=== PATIENT | female | born 1995 | race Caucasian/White ===

== ENCOUNTER 2018-02-14 12:05 | Emergency (ER) | payer OTHER ==
--- NOTE | 2018-02-14 12:28 | ER Document Report ---
ED Medical Screen (RME) - General Chief Complaint: Rectal Pain Stated Complaint: RECTAL ISSUES Time Seen by Provider: 02/14/18 12:23 - HPI Notes: 02/14/18 12:27 Patient is a 22-year-old female that presents to the emergency department for chief complaint of rectal prolapse. Patient has had rectal prolapse for the last year. She was seen by a surgeon and has an appointment on 03/01/[address] Landon Mora in [place] for repair. She states about an hour ago the prolapse came out and she is unable to reduce it ROS: GENERAL: Denies fever of chills CV: Denies chest pain PHYSICAL EXAMINATION: GENERAL: Well-appearing, well-nourished and in no acute distress. HEAD: Atraumatic, normocephalic. EYES: Pupils equal round extraocular movements intact, conjunctiva are normal. ENT: Nares patent NECK: Normal range of motion LUNGS: No respiratory distress Musculoskeletal: Normal range of motion NEUROLOGICAL: Normal speech, normal gait. PSYCH: Normal mood, normal affect. MDM: Patient seen and examined for rapid initial assessment. Vital signs reviewed. A comprehensive ED assessment and evaluation of the patient, analysis of test results and completion of the medical decision making process will be conducted by additional ED providers. - Related Data Allergies/Adverse Reactions: No Known Allergies Allergy (Verified 02/14/18 12:26) Past Medical History - Social History Chew tobacco use (# tins/day): No Frequency of alcohol use: Social Drug Abuse: None Pulmonary Medical History: Reports: Hx Asthma Renal/ Medical History: Denies: Hx Peritoneal Dialysis Past Surgical History: Reports: Hx Abdominal Surgery - gastric sleeve, Hx Cholecystectomy - Immunizations Hx Diphtheria, Pertussis, Tetanus Vaccination: No Physical Exam - Vital signs Vitals: Temp Pulse Resp BP Pulse Ox 98.3 F 103 H 16 118/84 98 02/14/18 12:16 02/14/18 12:16 02/14/18 12:16 02/14/18 12:16 02/14/18 12:16 Course - Vital Signs Vital signs: Temp Pulse Resp BP Pulse Ox 98.3 F 103 H 16 118/84 98 02/14/18 12:16 02/14/18 12:16 02/14/18 12:16 02/14/18 12:16 02/14/18 12:16
--- NOTE | 2018-02-14 12:59 | ER Document Report ---
ED General - General Chief Complaint: Rectal Pain Stated Complaint: RECTAL ISSUES Time Seen by Provider: 02/14/18 12:23 Notes: Patient is a 22-year-old female that presents to the emergency department for chief complaint of rectal prolapse. Patient has a chronic history of rectal prolapse for almost a year now, she is scheduled to have surgery at the beginning of next year, today she states she had a bowel movement, and usually she is able to manually reduce her prolapse, but after multiple attempts, over a few hours she was not able to, and was having pain so she decided come to the ED. She currently rates her pain as a 7 out of 10, worse with trying to sit down or walking. Describes as a constant and aching sensation near the rectum. She denies having any nausea, vomiting, fevers, chills, abdominal pain or other symptoms at this time. Past Medical History: Rectal prolapse Past Surgical History: Denies pertinent surgical history Social History: Denies current tobacco, alcohol or drug use. Family History: Reviewed and noncontributory for presenting illness Allergies: Reviewed, see documented allergy list. REVIEW OF SYSTEMS: Other than noted above, the 12 point review of systems was reviewed with the patient and were negative, all pertinent findings are included in the HPI. PHYSICAL EXAMINATION: Vital signs reviewed, nursing noted reviewed. GENERAL: Well-appearing, well-nourished and in no acute distress. HEAD: Atraumatic, normocephalic. EYES: Eyes appear normal, extraocular movements intact, sclera anicteric, conjunctiva are normal. ENT: nares patent, oropharynx clear without exudates. Moist mucous membranes. NECK: Normal range of motion, supple without lymphadenopathy LUNGS: Breath sounds clear to auscultation bilaterally and equal. No wheezes rales or rhonchi. HEART: Regular rate and rhythm without murmurs ABDOMEN: Soft, nontender, normoactive bowel sounds. No rebound, guarding, or rigidity. No masses appreciated. External anal exam: With paint stockman present, the patient was in the right lateral decubitus position, and rectum appeared to be prolapsed, tissue appeared healthy, was red and pink, no evidence of necrosis EXTREMITIES: Nontender, good range of motion, no pitting or edema. NEUROLOGICAL: No focal neurological deficits. Moves all extremities spontaneously Motor and sensory grossly intact on exam. PSYCH: Normal mood, normal affect. SKIN: Warm, Dry, normal turgor, no rashes or lesions noted on exposed skin - Related Data Allergies/Adverse Reactions: No Known Allergies Allergy (Verified 02/14/18 12:26) Past Medical History - Social History Smoking Status: Current Every Day Smoker Chew tobacco use (# tins/day): No Frequency of alcohol use: Social Drug Abuse: None Family History: Reviewed & Not Pertinent Patient has suicidal ideation: No Patient has homicidal ideation: No Pulmonary Medical History: Reports: Hx Asthma Renal/ Medical History: Denies: Hx Peritoneal Dialysis Past Surgical History: Reports: Hx Abdominal Surgery - gastric sleeve, Hx Cholecystectomy - Immunizations Hx Diphtheria, Pertussis, Tetanus Vaccination: No Physical Exam - Vital signs Vitals: Temp Pulse Resp BP Pulse Ox 98.3 F 103 H 16 118/84 98 02/14/18 12:16 02/14/18 12:16 02/14/18 12:16 02/14/18 12:16 02/14/18 12:16 Course - Re-evaluation Re-evalutation: Patient was seen and examined, paint stockman in the room, rectal exam demonstrated a prolapsed rectum, initially plan to use sugar to help reduce it, after patient was placed in the right lateral decubitus position, and elevated on the bed, the motion of elevate in the cot, actually resulted in spontaneous reduction of the patient's prolapsed rectum. Patient appeared well and was comfortable after this occurred, and will discharge her to follow-up with her surgeon, she is advised if she is not able to reduce this again, to do not hesitate to return to the emergency department. - Vital Signs Vital signs: Temp Pulse Resp BP Pulse Ox 98.5 F 103 H 14 116/83 97 02/14/18 13:01 02/14/18 12:16 02/14/18 13:01 02/14/18 13:01 02/14/18 13:01 Discharge - Discharge Clinical Impression: Rectal prolapse Condition: Stable Disposition: HOME, SELF-CARE Additional Instructions: Please follow-up with your surgeon, if you have prolapse again, after attempts at home, turning on her side, and on to your abdomen, may help, if this does not reduce it, do not hesitate to return to the emergency department. Referrals: FIONA GUZMAN MD [ACTIVE STAFF] - Follow up as needed (or your primary care. )
[2018-02-14 13:04] VITALS: BP 116/83
== END 2018-02-14 13:10 | disposition home or self-care (01) ==
LOC: ER 12:05
DX: K62.3 Rectal prolapse (principal); J45.909 Unspecified asthma, uncomplicated; Z98.84 Bariatric surgery status
CPT/HCPCS: 99283

== ENCOUNTER 2018-03-12 03:00 | Emergency (ER) | payer OTHER ==
[2018-03-12 03:07] VITALS: BP 133/93
[2018-03-12 03:28] LABS: APPEARANCE,URINE CLOUDY; BILIRUBIN,URINE NEGATIVE (NEGATIVE); COLOR,URINE RED; GLUCOSE, URINE NEGATIVE (NEGATIVE); KETONES,URINE NEGATIVE (NEGATIVE); LEUKOCYTE ESTERASE,URINE NEGATIVE (NEGATIVE); NITRITE,URINE NEGATIVE (NEGATIVE); PROTEIN,URINE 100 mg/dL (NEGATIVE); URINE SPECIFIC GRAVITY 1.019; UROBILINOGEN,URINE NEGATIVE mg/dL (<2.0)
[2018-03-12] MEDS ORDERED: MORPHINE SULFATE 10 MG/ML INJ IV ONE (03:35)
[2018-03-12] MEDS ORDERED: NORMAL SALINE 1000 ML 1,000 ML IV ONE (03:35)
[2018-03-12] MEDS ORDERED: ONDANSETRON HCL INJ/PF 4 MG/2 ML SDV IV ONE (03:35)
--- NOTE | 2018-03-12 03:38 | ER Document Report ---
ED GI/ - General Chief Complaint: Urinary Problem Stated Complaint: URINARY ISSUES Time Seen by Provider: 03/12/18 03:28 Notes: Patient is a 22-year-old female that comes to the emergency department for chief complaint of worsening right flank pain radiating around to the right abdomen for the past several days, over the past 24 hours it has become significantly worse, she is started becoming nauseated and she vomited earlier. She does re port possible blood in the urine and also reports dysuria and frequency. She denies fever or chills. She denies history of kidney stones or kidney infections. Past medical history of gastric sleeve, cholecystectomy, she had rectal prolapse repair on 03/01/[address] Mora in [place]. TRAVEL OUTSIDE OF THE [place] IN LAST 30 DAYS: No - Related Data Allergies/Adverse Reactions: No Known Allergies Allergy (Verified 02/14/18 12:26) Past Medical History - General Information source: Patient - Social History Smoking Status: Current Every Day Smoker Chew tobacco use (# tins/day): No Smoking Education Provided: Yes - <3 min Frequency of alcohol use: Occasional Drug Abuse: None Lives with: Family Family History: Reviewed & Not Pertinent Patient has suicidal ideation: No Patient has homicidal ideation: No Pulmonary Medical History: Reports: Hx Asthma Renal/ Medical History: Denies: Hx Peritoneal Dialysis Past Surgical History: Reports: Hx Abdominal Surgery - gastric sleeve; rectal prolapse repair, Hx Cholecystectomy - Immunizations Hx Diphtheria, Pertussis, Tetanus Vaccination: Yes Review of Systems - Review of Systems Constitutional: No symptoms reported EENT: No symptoms reported Cardiovascular: No symptoms reported Respiratory: No symptoms reported Gastrointestinal: See HPI Genitourinary: See HPI Female Genitourinary: No symptoms reported Musculoskeletal: No symptoms reported Skin: No symptoms reported Hematologic/Lymphatic: No symptoms reported Neurological/Psychological: No symptoms reported Physical Exam - Vital signs Vitals: Temp Pulse Resp BP Pulse Ox 97.4 F 75 20 133/93 H 100 03/12/18 03:03 03/12/18 03:03 03/12/18 03:03 03/12/18 03:03 03/12/18 03:03 - Notes Notes: GENERAL: Tearful, appears uncomfortable, shifting frequently. HEAD: Normocephalic, atraumatic. EYES: Pupils equal, round, and reactive to light. Extraocular movements intact. ENT: Oral mucosa moist, tongue midline. Oropharynx unremarkable. Airway patent. Nares patent, no nasal septal hematoma, TM's intact. NECK: Full range of motion. Supple. Trachea midline. LUNGS: Clear to auscultation bilaterally, no wheezes, rales, or rhonchi. No respiratory distress. HEART: Regular rate and rhythm. No murmur ABDOMEN: Mild generalized right sided abdominal tenderness, no guarding. Recent umbilical wounds which appear to be healed without erythema, drainage, signs of infection. Unremarkable otherwise. GENITOURINARY: Deferred EXTREMITIES: Moves all 4 extremities spontaneously. No edema, normal radial and dorsalis pedis pulses bilaterally. No cyanosis. BACK: no cervical, thoracic, lumbar midline tenderness. No saddle anesthesia, normal distal neurovascular exam. Right CVA tenderness, left unremarkable. NEUROLOGICAL: Alert and oriented x3. Normal speech. [cranial nerves II through XII grossly intact]. SKIN: Warm, dry, normal turgor. No rashes or lesions noted. Course - Re-evaluation Re-evalutation: Vital signs unremarkable. No fever, tachycardia, or hypotension. After treatment with morphine, IV fluids, patient is much more comfortable. Symptoms almost completely resolved. CBC unremarkable, chemistry unremarkable, other than minimal LFT elevation. No tenderness in the right upper quadrant, epigastric area, or upper abdomen generally. Patient does have right sided CVA tenderness extending to the mid to lower right abdomen. Urinary tract infection noted along with a lot of blood on the. test negative. CAT scan performed, shows hydronephrosis on the right side, no nephrolithiasis or ureterolithiasis noted. No acute findings otherwise. Clinical picture is most suggestive of patient having developed a ureterolithiasis, secondary infection, and then having passed the stone. She will be provided with antibiotics, symptom management. I discussed results with patient in detail, discussed dietary precautions, kidney stones, follow-up, and return precautions. Patient states understanding and agreement. Stable at time of discharge. - Vital Signs Vital signs: Temp Pulse Resp BP Pulse Ox 97.4 F 75 20 133/93 H 100 03/12/18 03:03 03/12/18 03:03 03/12/18 03:03 03/12/18 03:03 03/12/18 03:03 - Laboratory Result Diagrams: 03/12/18 03:50 03/12/18 03:50 Laboratory results interpreted by me: 03/12/18 03/12/18 03/12/18 03:08 03:50 03:50 WBC 11.4 H AST 54 H ALT 60 H Urine Protein 100 H Urine Blood LARGE H Discharge - Discharge Clinical Impression: Flank pain Urinary tract infection Qualifiers: Urinary tract infection type: site unspecified Hematuria presence: with hematuria Qualified Code(s): N39.0 - Urinary tract infection, site not specified Vomiting Qualifiers: Vomiting type: unspecified Vomiting Intractability: non-intractable Nausea presence: with nausea Qualified Code(s): R11.2 - Nausea with vomiting, unspecified Condition: Stable Disposition: HOME, SELF-CARE Additional Instructions: Your workup and evaluation indicates that you recently passed a kidney stone, before this past this was developing an infection. You have been started on antibiotics, he was given a dose of Rocephin here in the emergency department, complete treatment for urinary tract infection with the cephalexin as prescribed. Take prescribed medication for pain and nausea if needed. Follow- up with primary care. Avoid food products containing oxalate such as dark sodas, sweet tea, etc. as discussed. Return if you worsen including fever, shaking chills, uncontrolled vomiting, worsening pain, or any other concerning or worsening symptoms. Prescriptions: Cephalexin Monohydrate [Keflex 500 mg Capsule] 500 mg PO BID #14 capsule Morphine Sulfate [Morphine Ir 15 Mg Tablet] 15 mg PO TID PRN #12 tablet PRN Reason: Ondansetron [Zofran Odt 4 mg Tablet] 1 - 2 tab PO Q4H PRN #15 tab.rapdis PRN Reason: For Nausea/Vomiting
[2018-03-12 04:10] LABS: ABSOLUTE BASOPHILS # (AUTO) 0.1 10^3/uL (0.0-0.2); ABSOLUTE EOSINOPHILS # (AUTO) 0.5 10^3/uL (0.0-0.6); ABSOLUTE LYMPHOCYTES (AUTO) 2.8 10^3/uL (0.5-4.7); ABSOLUTE MONOCYTES (AUTO) 0.7 10^3/uL (0.1-1.4); ABSOLUTE NEUT (AUTO) 7.3 10^3/uL (1.7-8.2); EOSINOPHILS % (AUTO) 4.5 % (0-6); HEMATOCRIT 43.7 % (36.0-47.0); HEMOGLOBIN 14.8 g/dL (12.0-15.5); LYMPHOCYTES % (AUTO) 24.3 % (13-45); MEAN CORPUSCULAR HEMOGLOBIN 30.8 pg (27.0-33.4); MEAN CORPUSCULAR HGB CONC 33.9 g/dL (32.0-36.0); MEAN CORPUSCULAR VOLUME 91 fl (80-97); MONOCYTES % (AUTO) 5.7 % (3-13); PLATELET COUNT 420 10^3/uL (150-450); RED BLOOD COUNT 4.81 10^6/uL (3.72-5.28); RED CELL DISTRIBUTION WIDTH 12.8 % (11.5-14.0); SEGMENTED NEUTROPHILS % (AUTO) 64.5 % (42-78); TOTAL CELLS COUNTED % (AUTO) 100 %; WHITE BLOOD COUNT 11.4 10^3/uL (4.0-10.5)
[2018-03-12] MEDS ORDERED: CEFTRIAXONE 1 GM/D5W RTU 1 GM/50 ML RTUPB IV ONE (04:23)
[2018-03-12 04:44] LABS: ALANINE AMINOTRANSFERASE 60 U/L (9-52); ALBUMIN 4.7 g/dL (3.5-5.0); ALKALINE PHOSPHATASE 102 U/L (38-126); ANION GAP 9 (5-19); ASPARTATE AMINO TRANSFERASE 54 U/L (14-36); BILIRUBIN,DIRECT 0.3 mg/dL (0.0-0.4); BILIRUBIN,TOTAL 0.6 mg/dL (0.2-1.3); BLOOD UREA NITROGEN 13 mg/dL (7-20); CALCIUM 9.9 mg/dL (8.4-10.2); CARBON DIOXIDE 29 mmol/L (22-30); CHLORIDE 104 mmol/L (98-107); GLUCOSE 96 mg/dL (75-110); POTASSIUM 4.5 mmol/L (3.6-5.0); SODIUM 142.3 mmol/L (137-145); TOTAL PROTEIN 7.2 g/dL (6.3-8.2)
--- NOTE | 2018-03-12 04:44 | RADIOLOGY REPORT (SQ) ---
CLINICAL DATA: 22-year-old female with right flank pain, nausea and vomiting TECHNICAL DATA: Axial CT imaging of the abdomen and pelvis was performed. Sagittal and coronal reconstructed images were then performed. The CT study is performed according to ALARA (as low as reasonably achievable) or ALARA/IMAGE GENTLY, with automatic adjustment of mA and/or kV according to patient size. Performed on: 03/12/2018 at 4:06 AM Comparison: None. FINDINGS: Lung bases: The lung bases are clear. Liver:The liver is normal in size and configuration. No focal hepatic abnormalities are appreciated on this unenhanced scan. Liver attenuation is within normal limits. Spleen:The spleen is normal is size, configuration and attenuation. No focal splenic abnormalities are appreciated on this unenhanced scan. Gallbladder and bile duct: The gallbladder is surgically absent. There is no biliary ductal dilatation. Pancreas: The pancreas is grossly normal in size and configuration. Adrenal Glands:The adrenal glands are normal in size and configuration. Kidneys:The kidneys are normal in size and configuration. There is mild dilatation of the right renal collecting system. No definite ureteral calcifications are identified. There is no evidence of nephrolithiasis. No focal renal abnormalities are identified. Stomach: There are postsurgical changes along the greater curvature of the stomach. There is no definite hiatal hernia. Bowel:The bowel gas pattern is non specific and non obstructive. A surgical suture line is noted in the region of the sigmoid colon. Appendix: The appendix is normal. Free air:There is no evidence of free air. Free fluid: There is no evidence of free fluid. Vasculature: The aorta is normal in caliber and contour. The inferior vena cava is grossly unremarkable. Lymphadenopathy: No pathologic lymphadenopathy is identified. Bladder: The bladder is incompletely distended and smooth in contour. Reproductive: The uterus is grossly within normal limits. Bones: No acute osseous abnormalities are identified. Soft tissues: No focal soft tissue abnormalities are identified. IMPRESSION: 1. There is mild right-sided hydronephrosis without evidence of a definite obstructing ureteral calculus. Findings could reflect a recently passed stone or possibly ureteral stenosis. 2. Remote cholecystectomy. 3. Postsurgical changes along the greater curvature of the stomach and surgical suture line in the region of the sigmoid colon.
== END 2018-03-12 05:15 | disposition home or self-care (01) ==
LOC: ER 03:00
DX: N39.0 Urinary tract infection, site not specified (principal); R31.9 Hematuria, unspecified; R11.2 Nausea with vomiting, unspecified; N13.30 Unspecified hydronephrosis; R79.89 Other specified abnormal findings of blood chemistry; F17.200 Nicotine dependence, unspecified, uncomplicated; J45.909 Unspecified asthma, uncomplicated; Z98.84 Bariatric surgery status; Z90.49 Acquired absence of other specified parts of digestive tract; Z98.890 Other specified postprocedural states
CPT/HCPCS: 99284; 96361; 96375; 96365; 36415; 87086; 85025; 81025; 80053; 81001; 76380; J2270; J2405; J7030; J0696

== ENCOUNTER 2019-05-14 14:44 | Emergency (ER) | payer SELFPAY ==
[2019-05-14 15:14] VITALS: BP 116/72
[2019-05-14 16:11] LABS: A TYPE INFLUENZA AG NEGATIVE (NEGATIVE); B INFLUENZA AG NEGATIVE (NEGATIVE)
--- NOTE | 2019-05-14 17:12 | ER Document Report ---
HPI - HPI Time Seen by Provider: 05/14/19 15:14 Pain Level: 2 Notes: Patient is an otherwise healthy 23-year-old female presenting to the emergency department 3-day history of sore throat, runny nose, cough, body aches, diarrhea, nausea. Patient denies any abdominal pain. Denies fever. - EENT EENT: REPORTS: Sore Throat - REPRODUCTIVE Reproductive: DENIES: : Past Medical History - General Information source: Patient - Social History Smoking Status: Current Every Day Smoker Family History: Reviewed & Not Pertinent Patient has suicidal ideation: No Patient has homicidal ideation: No Pulmonary Medical History: Reports: Hx Asthma Renal/ Medical History: Denies: Hx Peritoneal Dialysis Past Surgical History: Reports: Hx Abdominal Surgery - gastric sleeve; rectal prolapse repair, Hx Cholecystectomy - Immunizations Hx Diphtheria, Pertussis, Tetanus Vaccination: Yes Vertical Provider Document - CONSTITUTIONAL Notes: PHYSICAL EXAMINATION: GENERAL: Well-appearing, well-nourished and in no acute distress. HEAD: Atraumatic, normocephalic. EYES: Pupils equal round and reactive to light, extraocular movements intact, conjunctiva are normal. ENT: Nares patent, oropharynx clear without exudates. Moist mucous membranes. NECK: Normal range of motion, supple without lymphadenopathy LUNGS: Breath sounds clear to auscultation bilaterally and equal. No wheezes rales or rhonchi. HEART: Regular rate and rhythm without murmurs ABDOMEN: Soft, nontender, nondistended abdomen. No guarding, no rebound. No masses appreciated. Female : deferred Musculoskeletal: Normal range of motion, no pitting or edema. No cyanosis. NEUROLOGICAL: Cranial nerves grossly intact. Normal speech, normal gait. Normal sensory, motor exams PSYCH: Normal mood, normal affect. SKIN: Warm, Dry, normal turgor, no rashes or lesions noted. - INFECTION CONTROL TRAVEL OUTSIDE OF THE [place] IN LAST 30 DAYS: No Course - Re-evaluation Re-evalutation: Laboratory 05/14/19 15:30 Influenza A (Rapid) NEGATIVE Influenza B (Rapid) NEGATIVE Influenza negative. Patient appears well, nontoxic, no indication for further work-up at this time. Vital signs stable. Patient verbalized understanding and agreement with discharge instructions. - Vital Signs Vital signs: Temp Pulse Resp BP Pulse Ox 98.3 F 80 16 116/72 100 05/14/19 15:13 03/17/20 15:13 05/14/19 15:13 05/14/19 15:13 05/14/19 15:13 Discharge - Discharge Clinical Impression: Flu-like symptoms Condition: Stable Disposition: HOME, SELF-CARE Additional Instructions: Your symptoms are most consistent with a virus. Please push fluids. Take Tylenol or ibuprofen for any fever, pain or body aches. Forms: Return to Work
== END 2019-05-14 17:23 | disposition home or self-care (01) ==
LOC: ER 14:44
DX: J02.9 Acute pharyngitis, unspecified (principal); M79.10 Myalgia, unspecified site; R19.7 Diarrhea, unspecified; R11.0 Nausea; F17.200 Nicotine dependence, unspecified, uncomplicated; Z90.49 Acquired absence of other specified parts of digestive tract
CPT/HCPCS: 87804; 99283

== ENCOUNTER 2019-07-02 09:12 | Emergency (ER) | payer BC ==
--- NOTE | 2019-07-02 10:12 | ER Document Report ---
ED Medical Screen (RME) - General Stated Complaint: ABDOMINAL CRAMPING Time Seen by Provider: 07/02/19 10:07 TRAVEL OUTSIDE OF THE [place] IN LAST 30 DAYS: No - HPI Notes: 07/02/19 10:10 23-year-old female 6 para 1 who is 5 weeks and 3 days with a history of nephrolithiasis presents to the emergency room for mild cramping and painful lower back that started yesterday afternoon. Patient states pain has been constant in her lower back but her lower abdominal cramping has been intermittent, denies any vaginal bleeding or vaginal discharge, no fevers or chills. Denies any nausea vomiting or diarrhea, no chest pain or shortness of breath. She did contact her STRAW HAT PRESSER, fouzia, are unable to see her today advised her to come to the emergency room. I have greeted and performed a rapid initial assessment of this patient. A comprehensive ED assessment and evaluation of the patient, analysis of test results and completion of the medical decision making process will be conducted by additional ED providers. PHYSICAL EXAMINATION: GENERAL: Well-appearing, well-nourished and in no acute distress. CV: s1, s2 regular LUNGS: No respiratory distress Musculoskeletal: Normal range of motion ABD: Lower abdominal tenderness on palpation, no CVA tenderness appreciated bilaterally NEUROLOGICAL: Normal speech, normal gait. SKIN: Warm, Dry, normal turgor, no rashes or lesions noted. - Related Data Allergies/Adverse Reactions: No Known Allergies Allergy (Verified 02/14/18 12:26) Past Medical History Pulmonary Medical History: Reports: Hx Asthma Renal/ Medical History: Denies: Hx Peritoneal Dialysis Past Surgical History: Reports: Hx Abdominal Surgery - gastric sleeve; rectal prolapse repair, Hx Cholecystectomy - Immunizations Hx Diphtheria, Pertussis, Tetanus Vaccination: Yes Physical Exam - Vital signs Vitals: Temp Pulse Resp BP Pulse Ox 97.8 F 70 16 116/75 100 07/02/19 09:15 07/02/19 09:15 07/02/19 09:15 07/02/19 09:15 07/02/19 09:15 Course - Vital Signs Vital signs: Temp Pulse Resp BP Pulse Ox 97.8 F 70 16 116/75 100 07/02/19 09:15 07/02/19 09:15 07/02/19 09:15 07/02/19 09:15 07/02/19 09:15
[2019-07-02 10:35] LABS: ABSOLUTE BASOPHILS # (AUTO) 0.1 10^3/uL (0.0-0.2); ABSOLUTE EOSINOPHILS # (AUTO) 0.3 10^3/uL (0.0-0.6); ABSOLUTE MONOCYTES (AUTO) 0.4 10^3/uL (0.1-1.4); MEAN CORPUSCULAR HGB CONC 35.3 g/dL (32.0-36.0); TOTAL CELLS COUNTED % (AUTO) 100 %
[2019-07-02 10:40] LABS: ABSOLUTE LYMPHOCYTES (AUTO) 2.1 10^3/uL (0.5-4.7); ABSOLUTE NEUT (AUTO) 4.7 10^3/uL (1.7-8.2); EOSINOPHILS % (AUTO) 3.4 % (0-6); HEMOGLOBIN 13.8 g/dL (12.0-15.5); LYMPHOCYTES % (AUTO) 28.3 % (13-45); MEAN CORPUSCULAR HEMOGLOBIN 31.7 pg (27.0-33.4); MEAN CORPUSCULAR VOLUME 90 fl (80-97); MONOCYTES % (AUTO) 5.2 % (3-13); PLATELET COUNT 324 10^3/uL (150-450); RED BLOOD COUNT 4.35 10^6/uL (3.72-5.28); SEGMENTED NEUTROPHILS % (AUTO) 62.1 % (42-78); WHITE BLOOD COUNT 7.6 10^3/uL (4.0-10.5)
[2019-07-02 10:44] LABS: APPEARANCE,URINE SLIGHTLY-CLOUDY; BILIRUBIN,URINE NEGATIVE (NEGATIVE); COLOR,URINE STRAW; GLUCOSE, URINE NEGATIVE (NEGATIVE); KETONES,URINE NEGATIVE (NEGATIVE); LEUKOCYTE ESTERASE,URINE TRACE (NEGATIVE); NITRITE,URINE NEGATIVE (NEGATIVE); PROTEIN,URINE NEGATIVE (NEGATIVE); URINE SPECIFIC GRAVITY 1.005; UROBILINOGEN,URINE NEGATIVE mg/dL (<2.0)
[2019-07-02 11:06] LABS: ALKALINE PHOSPHATASE 56 U/L (38-126); ASPARTATE AMINO TRANSFERASE 17 U/L (14-36); BILIRUBIN,TOTAL 0.5 mg/dL (0.2-1.3); BLOOD UREA NITROGEN 7 mg/dL (7-20); CALCIUM 9.2 mg/dL (8.4-10.2); CARBON DIOXIDE 28 mmol/L (22-30); CHLORIDE 104 mmol/L (98-107); GLUCOSE 88 mg/dL (75-110); POTASSIUM 4.3 mmol/L (3.6-5.0); TOTAL PROTEIN 6.5 g/dL (6.3-8.2)
[2019-07-02 11:12] LABS: ANION GAP 5 (5-19)
--- NOTE | 2019-07-02 11:50 | ER Document Report ---
Entered by DORENE MATTHEWS SCRIBE 07/02/19 1141 Acting as scribe for:BRADY SCHNEIDER MD ED GI/ - General Chief Complaint: Abdominal Pain Stated Complaint: ABDOMINAL CRAMPING Time Seen by Provider: 07/02/19 10:07 Mode of Arrival: Ambulatory Information source: Patient Notes: This 23 year old female patient, A4, currently approximately x5 weeks presents to the ED today with complaints of abdominal cramping and left lower back pain that started yesterday afternoon. Patient reports a history of kidney stones and UTIs and is concerned that she may have another kidney stone or miscarriage. She states that she tried to go see her mid- today, but was unable to so she decided to come to the ED. She notes that she has not had a ultrasound done yet, but has a consultation set up in x3 days. LMP was 05/26/2019. Denies vaginal bleeding, vaginal discharge, fever, chills, nausea/vomiting/diarrhea outside of morning sickness, chest pain, or shortness of breath. TRAVEL OUTSIDE OF THE [place] IN LAST 30 DAYS: No - Related Data Allergies/Adverse Reactions: No Known Allergies Allergy (Verified 02/14/18 12:26) Home Medications: Prenatals Past Medical History - General Information source: Patient - Social History Smoking Status: Smoker,Current Status Unk Cigarette use (# per day): Yes Chew tobacco use (# tins/day): No Smoking Education Provided: No Frequency of alcohol use: Rare Drug Abuse: None Lives with: Family Family History: Reviewed & Not Pertinent, DM Patient has suicidal ideation: No Patient has homicidal ideation: No Pulmonary Medical History: Reports: Hx Asthma Skin Medical History: Reports Other - Hx Vertigo Past Surgical History: Reports: Hx Cholecystectomy, Hx Gastric Bypass Surgery - gastric sleeve, Hx Rectal Surgery - rectal prolapse repair - Immunizations Hx Diphtheria, Pertussis, Tetanus Vaccination: Yes Review of Systems - Review of Systems Constitutional: See HPI. denies: Chills, Fever EENT: No symptoms reported Cardiovascular: See HPI. denies: Chest pain Respiratory: See HPI. denies: Short of breath Gastrointestinal: See HPI, Other - Abdominal cramping. denies: Diarrhea, Nausea, Vomiting Genitourinary: No symptoms reported Female Genitourinary: See HPI, Last menstrual period - 05/26/2019, - x5 weeks. denies: Vaginal discharge, Vaginal bleeding Musculoskeletal: See HPI, Back pain Skin: No symptoms reported Hematologic/Lymphatic: No symptoms reported Neurological/Psychological: No symptoms reported -: Yes All other systems reviewed and negative Physical Exam - Vital signs Vitals: Temp Pulse Resp BP Pulse Ox 97.8 F 70 16 116/75 100 07/02/19 09:15 07/02/19 09:15 07/02/19 09:15 07/02/19 09:15 07/02/19 09:15 Interpretation: Normal - General General appearance: Appears well, Alert In distress: None - HEENT Head: Normocephalic, Atraumatic Eyes: Normal Pupils: PERRL - Respiratory Respiratory status: No respiratory distress Chest status: Nontender Breath sounds: Normal Chest palpation: Normal - Cardiovascular Rhythm: Regular Heart sounds: Normal auscultation, S1 appreciated, S2 appreciated Murmur: No Friction rub: No Gallop: None auscultated - Abdominal Inspection: Normal Distension: No distension Bowel sounds: Normal Tenderness: Nontender - Abdomen soft Organomegaly: No organomegaly - Back Back: Normal, Nontender - Extremities General upper extremity: Normal inspection General lower extremity: Normal inspection - Neurological Neuro grossly intact: Yes Orientation: AAOx4 - Psychological Associated symptoms: Normal affect, Normal mood - Skin Skin Temperature: Warm Skin Moisture: Dry Skin Color: Normal Course - Re-evaluation Re-evalutation: 07/02/19 11:45 Patient resting comfortably pending lab results and ultrasound results at this time. - Vital Signs Vital signs: Temp Pulse Resp BP Pulse Ox 97.8 F 70 16 116/75 100 07/02/19 10:04 07/02/19 09:15 07/02/19 09:15 07/02/19 09:15 07/02/19 09:15 07/02/19 11:45 Vital signs stable - Laboratory Result Diagrams: 07/02/19 10:22 07/02/19 10:22 Laboratory results interpreted by me: 07/02/19 07/02/19 10:22 10:22 Sodium 136.8 L Beta HCG, Quant 26.46 H Ur Leukocyte Esterase TRACE H 07/02/19 11:46 Significant lab results shows a quantitative beta hCG equals 26.46. I discussed the significance of such a low number on the quantitative beta-hCG with patient. Patient is saddened over such a low number as she considers herself to be greater than 3 to 5 weeks in that range at this time. And this is based on her last menstrual period of May 25. I explained to patient that the quantitative number doubles every 2 days and explained to her that she needs to follow-up with her OB level vial grinder/medical i d sales for further testing in 2 days. - Diagnostic Test Radiology reviewed: Image reviewed, Reports reviewed Radiology results interpreted by me: 07/02/19 11:47 Preliminary renal ultrasound disclosed no evidence for hydronephrosis or significant change between 1 kidney size to the next. There is a 1 cm dilation of the right ureter over the left. Otherwise no acute process seen. Again discussed this finding with patient and explained to her that we did not see any signs of kidney stone on renal ultrasound. Discharge - Discharge Clinical Impression: Threatened miscarriage in early Condition: Stable Disposition: HOME, SELF-CARE Instructions: Threatened Miscarriage (OM) Additional Instructions: I explained the patient that she needs to follow-up with her medical i d sales within the next 2 days for repeat testing. Today's test results shows a quantitative beta- hCG of 26.46 I personally performed the services described in the documentation, reviewed and edited the documentation which was dictated to the scribe in my presence, and it accurately records my words and actions.
--- NOTE | 2019-07-02 12:06 | RADIOLOGY REPORT (SQ) ---
EXAM DESCRIPTION: U/S RETROPERITON (RENAL/AORTA) IMAGES COMPLETED DATE/TIME: 07/02/2019 11:35 am REASON FOR STUDY: lbp pain, hx of kidney stones COMPARISON: None. TECHNIQUE: Dynamic and static grayscale images acquired of the kidneys and bladder and recorded on P ACS. Additional selected color Doppler and spectral images recorded. LIMITATIONS: None. FINDINGS: RIGHT KIDNEY: The right kidney measures 9.9 cm in length. The echotexture of the renal pa renchyma is normal. The corticomedullary differentiation is preserved. There is no hydronephrosis, calcification or mass. LEFT KIDNEY: The left kidney measures 11.5 cm in length. The echotexture of the renal parenchymal i s normal. The corticomedullary differentiation is preserved. There is no hydronephrosis, calcificat ion or mass. BLADDER: No abnormality. OTHER FINDINGS: No other finding. IMPRESSION: No abnormality of the kidneys or urinary bladder. TECHNICAL DOCUMENTATION: JOB ID: [id number] 2010 [employer]- All Rights Reserved Reading location - IP/workstation name: [email or web address]
[2019-07-02 12:35] VITALS: BP 117/73
== END 2019-07-02 12:15 | disposition home or self-care (01) ==
LOC: ER 09:12
DX: O20.0 Threatened abortion (principal); O26.91 Pregnancy related conditions, unspecified, first trimester; R10.9 Unspecified abdominal pain; O99.331 Smoking (tobacco) complicating pregnancy, first trimester; F17.210 Nicotine dependence, cigarettes, uncomplicated; Z3A.01 Less than 8 weeks gestation of pregnancy; Z87.440 Personal history of urinary (tract) infections; Z90.49 Acquired absence of other specified parts of digestive tract; Z98.84 Bariatric surgery status
CPT/HCPCS: 36415; 76770; 80053; 81001; 84702; 85025; 99284

== ENCOUNTER → 2019-07-08 | Outpatient (CLI) | payer BC | LOC: OD 09:30 | PROVIDERS: ATTEND Obstetrics & Gynecology | DX: O20.0 Threatened abortion (principal); Z3A.00 Weeks of gestation of pregnancy not specified | CPT/HCPCS: 36415; 84702 ==

== ENCOUNTER → 2019-08-13 | Outpatient (CLI) | payer OTHER ==
--- NOTE | 2019-08-13 19:25 | RADIOLOGY REPORT (SQ) ---
EXAM DESCRIPTION: CT PELVIS WITHOUT IMAGES COMPLETED DATE/TIME: 08/13/2019 6:27 pm REASON FOR STUDY: M53.3 SACROCOCCYGEAL DISORDERS, NOT ELSEWHERE CLASSIFIED M53.3 SACROCOCCYGEAL DIS ORDERS, NOT ELSEWHERE CLASSIFIED COMPARISON: None. TECHNIQUE: CT scan of the pelvis performed without intravenous or oral contrast. Images reviewed wi th soft tissue and bone windows. Reconstructed coronal and sagittal MPR images reviewed. All images stored on PACS. All CT scanners at this facility use dose modulation, iterative reconstruction, and/or weight based d osing when appropriate to reduce radiation dose to as low as reasonably achievable (ALARA). [facility]: Dose Right [facility]: CareDose [facility]: Dose Right [facility]: Teradose 4D [facility]: [employer] RADIATION DOSE: Total Exam DLP: 522.10 mGy. LIMITATIONS: None. FINDINGS: PELVIC BONES: Deformity at the sacrococcygeal junction, maybe related to trauma. Age is indeterminate. VISUALIZED SPINE: No acute findings. HIP(S): No acute fracture or dislocation. No worrisome bone lesions. PELVIC SOFT TISSUES: No significant findings. EXTRAPELVIC SOFT TISSUES: No significant findings. OTHER: Anastomotic sutures at the junction of the mid-distal sigmoid colon. IMPRESSION: 1. Deformity at the sacrococcygeal junction, maybe related to trauma. Age is indetermi tresa. TECHNICAL DOCUMENTATION: JOB ID: [id number] Quality ID # [id number]: Final reports with documentation of one or more dose reduction techniques (e.g., Au tomated exposure control, adjustment of the mA and/or kV according to patient size, use of iterative reconstruction technique) 2010 [employer]- All Rights Reserved Reading location - IP/workstation name: [email or web address]
== END ==
LOC: RAD 17:37
PROVIDERS: ATTEND Nurse Practitioner
DX: M53.3 Sacrococcygeal disorders, not elsewhere classified (principal)
CPT/HCPCS: 72192

== ENCOUNTER 2019-10-22 20:13 | Emergency (ER) | payer SELFPAY ==
--- NOTE | 2019-10-22 21:04 | ER Document Report ---
ED Medical Screen (RME) - General Chief Complaint: Vaginal Bleeding Stated Complaint: VAGINAL BLEEDING Time Seen by Provider: 10/22/19 21:02 Primary Care Provider: RAFAEL ROE MD [Primary Care Provider] - Follow up as needed Mode of Arrival: Ambulatory Information source: Patient Notes: 23-year-old female presents to ED for complaint of vaginal bleeding and cr amping. She states she is 7 weeks . She is 7 para 1. She states she had a miscarriage in June. She states she had an ultrasound last week because she was having some spotting. She is alert oriented respirations regular nonlabored speaking in full sentences. She states she is trying to quit smoking. She became very tearful and I did not ask her about regular drugs. She states she does not remember what her blood type was so I did do her RhoGam. TRAVEL OUTSIDE OF THE [place] IN LAST 30 DAYS: No - Related Data Allergies/Adverse Reactions: No Known Allergies Allergy (Verified 02/14/18 12:26) Home Medications: PROGESTERON. Past Medical History - Social History Frequency of alcohol use: None Drug Abuse: None Pulmonary Medical History: Reports: Hx Asthma Renal/ Medical History: Denies: Hx Peritoneal Dialysis Past Surgical History: Reports: Hx Abdominal Surgery - gastric sleeve; rectal prolapse repair, Hx Cholecystectomy, Hx Gastric Bypass Surgery - gastric sleeve, Hx Rectal Surgery - rectal prolapse repair - Immunizations Hx Diphtheria, Pertussis, Tetanus Vaccination: Yes Physical Exam - Vital signs Vitals: Temp Pulse Resp BP Pulse Ox 98.0 F 93 20 129/79 H 100 10/22/19 20:25 10/22/19 20:25 10/22/19 20:25 10/22/19 20:25 10/22/19 20:25 Course - Vital Signs Vital signs: Temp Pulse Resp BP Pulse Ox 98.0 F 93 20 129/79 H 100 10/22/19 20:25 10/22/19 20:25 10/22/19 20:25 10/22/19 20:25 10/22/19 20:25 Doctor's Discharge - Discharge Referrals: RAFAEL ROE MD [Primary Care Provider] - Follow up as needed
--- NOTE | 2019-10-22 21:46 | RADIOLOGY REPORT (SQ) ---
EXAM DESCRIPTION: US TRANSVAGINAL COMPLETED DATE/TME: 10/22/2019 21:02 CLINICAL HISTORY: 23 years, Female, 7 weeks vaginal bleeding cramping COMPARISON: None. TECHNIQUE: Axial 2-D grayscale images of the pelvis were acquired. Doppler was utilized. LIMITATIONS: None. FINDINGS: Uterus measures 9.3 x 6.4 x 5.1 cm in size. Cervix is closed, measuring 2 cm in length. An intrauterine gestational sac is identified with measurements as follows: [place]-rump length is 0.3 cm heart rate is 95 bpm Yolk sac is present. Estimated gestational age is 5 weeks and 6 days for an estimated date of delivery of 06/17/2020 Left ovary measures 3.5 x 2.5 x 2.4 cm in size. It appears to demonstrate elements of Doppler flow about its periphery. The right ovary was not visualized. No significant free fluid is identified within the imaged pelvis. IMPRESSION: Single live intrauterine , as above described. heart rate is 95 bpm, indicating bradycardia. copyright 2010 [employer]- All Rights Reserved
[2019-10-22 21:49] LABS: ABSOLUTE BASOPHILS # (AUTO) 0.1 10^3/uL (0.0-0.2); ABSOLUTE EOSINOPHILS # (AUTO) 0.3 10^3/uL (0.0-0.6); ABSOLUTE MONOCYTES (AUTO) 0.6 10^3/uL (0.1-1.4); ABSOLUTE NEUT (AUTO) 7.5 10^3/uL (1.7-8.2); BASOPHILS % (AUTO) 0.8 % (0-2); EOSINOPHILS % (AUTO) 2.9 % (0-6); HEMATOCRIT 39.1 % (36.0-47.0); HEMOGLOBIN 13.4 g/dL (12.0-15.5); MEAN CORPUSCULAR HEMOGLOBIN 30.8 pg (27.0-33.4); MEAN CORPUSCULAR HGB CONC 34.2 g/dL (32.0-36.0); MEAN CORPUSCULAR VOLUME 90 fl (80-97); MONOCYTES % (AUTO) 5.1 % (3-13); PLATELET COUNT 313 10^3/uL (150-450); RED BLOOD COUNT 4.35 10^6/uL (3.72-5.28); RED CELL DISTRIBUTION WIDTH 12.7 % (11.5-14.0); SEGMENTED NEUTROPHILS % (AUTO) 65.2 % (42-78); TOTAL CELLS COUNTED % (AUTO) 100 %; WHITE BLOOD COUNT 11.5 10^3/uL (4.0-10.5)
[2019-10-22 21:56] LABS: APPEARANCE,URINE CLOUDY; BILIRUBIN,URINE NEGATIVE (NEGATIVE); COLOR,URINE YELLOW; GLUCOSE, URINE NEGATIVE (NEGATIVE); KETONES,URINE NEGATIVE (NEGATIVE); LEUKOCYTE ESTERASE,URINE MODERATE (NEGATIVE); NITRITE,URINE NEGATIVE (NEGATIVE); PROTEIN,URINE 30 mg/dL (NEGATIVE)
[2019-10-22 22:03] LABS: ALKALINE PHOSPHATASE 55 U/L (38-126); ANION GAP 6 (5-19); ASPARTATE AMINO TRANSFERASE 19 U/L (14-36); BILIRUBIN,DIRECT 0.3 mg/dL (0.0-0.4); BILIRUBIN,TOTAL 0.4 mg/dL (0.2-1.3); BLOOD UREA NITROGEN 7 mg/dL (7-20); CALCIUM 9.4 mg/dL (8.4-10.2); CARBON DIOXIDE 26 mmol/L (22-30); CHLORIDE 105 mmol/L (98-107); GLUCOSE 90 mg/dL (75-110); POTASSIUM 4.5 mmol/L (3.6-5.0); TOTAL PROTEIN 6.4 g/dL (6.3-8.2)
[2019-10-22 23:29] VITALS: BP 115/71
--- NOTE | 2019-10-23 00:59 | ER Document Report ---
ED GI/ - General Chief Complaint: Vaginal Bleeding Stated Complaint: VAGINAL BLEEDING Time Seen by Provider: 10/22/19 21:02 Primary Care Provider: RAFAEL ROE MD [ACTIVE STAFF] - Follow up as needed Mode of Arrival: Ambulatory Notes: Patient is a 23-year-old female who comes emergency department for chief complaint of vaginal bleeding and cramping. She denies fever, vomiting, vaginal discharge, dysuria, flank pain, injury. Patient states she is almost 7 weeks based on her last menstrual period. Patient states she had a miscarriage in June. Patient states she had a ultrasound about a week ago which did show an intrauterine . Patient states she is getting some nausea intermittently from the . TRAVEL OUTSIDE OF THE [place] IN LAST 30 DAYS: No - Related Data Allergies/Adverse Reactions: No Known Allergies Allergy (Verified 02/14/18 12:26) Home Medications: PROGESTERON. Past Medical History - General Information source: Patient - Social History Smoking Status: Current Every Day Smoker Smoking Education Provided: Yes - <3 min Frequency of alcohol use: None Drug Abuse: None Lives with: Family Family History: Reviewed & Not Pertinent, DM Pulmonary Medical History: Reports: Hx Asthma Renal/ Medical History: Denies: Hx Peritoneal Dialysis Past Surgical History: Reports: Hx Abdominal Surgery - gastric sleeve; rectal prolapse repair, Hx Cholecystectomy, Hx Gastric Bypass Surgery - gastric sleeve, Hx Rectal Surgery - rectal prolapse repair - Immunizations Hx Diphtheria, Pertussis, Tetanus Vaccination: Yes Review of Systems - Review of Systems Constitutional: No symptoms reported EENT: No symptoms reported Cardiovascular: No symptoms reported Respiratory: No symptoms reported Gastrointestinal: See HPI Genitourinary: See HPI Female Genitourinary: See HPI Musculoskeletal: No symptoms reported Skin: No symptoms reported Hematologic/Lymphatic: No symptoms reported Neurological/Psychological: No symptoms reported Physical Exam - Vital signs Vitals: Temp Pulse Resp BP Pulse Ox 98.0 F 93 20 129/79 H 100 10/22/19 20:25 10/22/19 20:25 10/22/19 20:25 10/22/19 20:25 10/22/19 20:25 - Notes Notes: GENERAL: Alert, interacts well. No acute distress. HEAD: Normocephalic, atraumatic. EYES: Pupils equal, round, and reactive to light. Extraocular movements intact. ENT: Oral mucosa moist, tongue midline. Oropharynx unremarkable. Airway patent. NECK: Full range of motion. Supple. Trachea midline. No lymphadenopathy. LUNGS: Clear to auscultation bilaterally, no wheezes, rales, or rhonchi. No respiratory distress. Non-tender chest wall. HEART: Regular rate and rhythm. No murmur ABDOMEN: Soft, non-tender. Non-distended. No guarding, distention, or rigidity. EXTREMITIES: Moves all 4 extremities spontaneously. No edema, normal radial and dorsalis pedis pulses bilaterally. No cyanosis. BACK: no cervical, thoracic, lumbar midline tenderness. No saddle anesthesia, normal distal neurovascular exam. Moves all extremities in full range of motion. NEUROLOGICAL: Alert and oriented x3. Normal speech. Cranial nerves II through XII grossly intact. Strength 5/5 in all extremities. PSYCH: Speaks slightly anxiously SKIN: Warm, dry, normal turgor. No rashes or lesions noted. Course - Re-evaluation Re-evalutation: CBC unremarkable, chemistry unremarkable, RhoGam is not indicated. Urine shows moderate leukocyte esterase and white blood cells although there are significant amount of squamous epithelials. I discussed with patient, after discussion decision was made to treat because of early and previous miscarriage. Culture has been placed. Ultrasound shows intrauterine at 5 weeks 6 days, bradycardia at 95, no other concerning findings. I discussed with patient, discussed her hCG and provided her with copies of both. Patient has DIRECTOR OF STRATE[employer]IC [employer]IANCES follow-up already. I did discuss with Dr. Beasley. At this time bradycardia is nonspecific, I did discuss pelvic rest and precautions because of the vaginal bleeding, patient has no current symptoms on my evaluation, patient will be discharged with follow-up instructions and return precautions. Patient requesting nausea medication and was provided with this. Patient states understanding and agreement with plan. - Vital Signs Vital signs: Temp Pulse Resp BP Pulse Ox 98.3 F 79 20 115/71 100 10/22/19 23:26 10/22/19 23:26 10/22/19 20:25 10/22/19 23:26 10/22/19 23:26 - Laboratory Result Diagrams: 10/22/19 21:38 10/22/19 21:38 Laboratory results interpreted by me: 10/22/19 10/22/19 10/22/19 21:14 21:38 21:38 WBC 11.5 H Sodium 136.9 L Beta HCG, Quant 87329.00 H Urine Protein 30 H Urine Blood LARGE H Urine Urobilinogen 2.0 H Ur Leukocyte Esterase MODERATE H Discharge - Discharge Clinical Impression: Vaginal bleeding affecting early , Nausea Condition: Stable Disposition: HOME, SELF-CARE Additional Instructions: There is a living in the uterus at 5 weeks and 6 days. Recommendation is pelvic rest, avoid any intense physical exercise, lifting, jumping, sexual intercourse for the next 5 to 7 days or until cleared by DIRECTOR OF STRATEGIC ALLIANCES. We are covering you for a potential urinary tract infection, improve your hydration. Return if you worsen including severe pain, very heavy bleeding, dizziness, passing out, or any other concerning symptoms. Prescriptions: Cephalexin Monohydrate [Keflex 500 mg Capsule] 500 mg PO BID 5 Days #10 capsule Metoclopramide HCl [Reglan] 5 mg PO ASDIR PRN #30 tablet PRN Reason: Forms: Return to Work Referrals: RAFAEL ROE MD [ACTIVE STAFF] - Follow up as needed
== END 2019-10-23 01:00 | disposition home or self-care (01) ==
LOC: ER 20:13
DX: O46.91 Antepartum hemorrhage, unspecified, first trimester (principal); O26.891 Other specified pregnancy related conditions, first trimester; R10.2 Pelvic and perineal pain; R11.0 Nausea; O99.511 Diseases of the respiratory system complicating pregnancy, first trimester; O99.331 Smoking (tobacco) complicating pregnancy, first trimester; J45.909 Unspecified asthma, uncomplicated; Z3A.01 Less than 8 weeks gestation of pregnancy; Z79.899 Other long term (current) drug therapy
CPT/HCPCS: 36415; 76817; 80053; 81001; 84702; 85025; 86900; 86901; 87086; 99284